=== PATIENT | male | born 1965 | race Caucasian/White ===

== ENCOUNTER 2020-02-20 16:08 | Observation (INO) | payer OTHER ==
[2020-02-20] MEDS ORDERED: ONDANSETRON 4 MG/2 ML VIAL IVP STA (16:27)
[2020-02-20] MEDS ORDERED: SODIUM CHLORIDE 0.9% 1,000 ML IV STA (16:27)
[2020-02-20] MEDS ORDERED: HYDROmorphone 1 MG/ML CARPUJECT IVP STA (16:28)
--- NOTE | 2020-02-20 16:32 | ED Physician Documentation ---
PD HPI ABD PAIN - Stated complaint Stated Complaint: LOWER ABD PX, VOMITING - Chief complaint Chief Complaint: Abd Pain - History obtained from History obtained from: Patient - History of Present Illness Timing - onset: How many hours ago (15) Timing - duration: Hours Timing - details: Abrupt onset Quality: Sharp, Throbbing, Pain Location: RLQ Radiation: Chest Associated symptoms: Nausea, Vomiting Similar symptoms before: No diagnosis, Has not had sx before - Additional information Additional information: 54-year-old male presents to the emergency department for evaluation of acute onset lower abdominal pain. Reports that approximately 15 hours ago he was awoken from sleep with a sharp bilateral lower pelvic painPain radiated to his upper abdomen and for a while he felt a pressure and throbbing in his chest.Since the pain began he has been vomiting uncontrollably. He denies that he has had any urinary symptoms, or hematuria. Patient denies pertinent past medical history. Denies hypertension, diabetes or asthma. He is not taking any prescribed medications. Denies EtOH. Positive tobacco. No previous surgical history Review of Systems Constitutional: denies: Fever, Chills Cardiac: denies: Chest pain / pressure, Palpitations Respiratory: denies: Dyspnea, Cough GI: reports: Abdominal Pain, Nausea, Vomiting. denies: Constipation, Diarrhea : denies: Dysuria, Frequency, Hesitancy, Unable to Void, Hematuria Skin: denies: Rash, Lesions Neurologic: denies: Generalized weakness PD PAST MEDICAL HISTORY - Past Surgical History Past Surgical History: No - Present Medications Home Medications: Ambulatory Orders Medication Instructions Recorded Confirmed Azithromycin [Zithromax] 250 mg PO DAILY #6 tablet 08/05/14 HYDROcod/ACETAM 5/325 [Vicodin 1 - 2 ea PO Q6H PRN #15 tablet 08/05/14 5/325] - Allergies Allergies/Adverse Reactions: Allergies Allergy/AdvReac Type Severity Reaction Status Date / Time berries Allergy Unknown Uncoded 02/20/20 16:18 - Social History Does the pt smoke?: Yes Smoking Status: Current every day smoker Does the pt drink ETOH?: Yes PD ED PE EXPANDED - General General: Alert, Well developed/nourished, In Pain - Neck Neck: Supple w/out meningeal sx, No tenderness - Cardiac Cardiac: Regular Rate, Femoral strong equal, Cap refill < 2 sec - Respiratory Respiratory: Clear to ausultation lara. No: Distress, Labored - Abdomen Abdomen: Tender to palpation, Rebound, Guarding (Percussion tenderness right lower quadrant. Positive guarding and rebound. Positive McBurney's. no tenderness RUQ) - Back Back: Normal exam. No: Vertebral tenderness, Soft tissue tenderness - Neuro Neuro: Alert and Oriented X 3. No: Confused, Disoriented Results - Vitals Vitals: Vital Signs - 24 hr 02/20/20 16:11 Temperature 36.7 C Heart Rate 80 Respiratory 16 Rate Blood Pressure 149/69 H O2 Saturation 97 Oxygen O2 Source Room air - EKG (time done) 1634 Rate: Rate (enter#) (68) Rhythm: NSR Cut Off: Normal Intervals: Normal MI QRS: Normal Ischemia: Normal ST segments Compare to prior EKG: Old EKG unavailable Computer interpretation: Agree with computer - Labs Labs: Laboratory Tests 02/20/20 02/20/20 02/20/20 16:35 16:35 16:35 WBC 20.4 H RBC 4.66 L Hgb 14.7 Hct 43.3 MCV 92.9 MCH 31.5 H MCHC 33.9 RDW 13.0 Plt Count 330 MPV 9.6 Neut # (Auto) Not Reportable Lymph # (Auto) Not Reportable [place] # (Auto) Not Reportable Eos # (Auto) Not Reportable Baso # (Auto) Not Reportable Absolute Nucleated RBC Not Reportable Total Counted 100 Band Neuts % (Manual) 1 Abnorm Lymph % (Manual) 0 Nucleated RBC % Not Reportable Neutrophils # (Manual) 18.0 H Lymphocytes # (Manual) 1.8 Monocytes # (Manual) 0.6 Eosinophils # (Manual) 0.0 Basophils # (Manual) 0.0 Differential Comment MANUAL DIFFERENTIAL Manual Slide Review Indicated WBC Morphology NORMAL APPEARANCE Platelet Estimate NORMAL (130-450,000) Platelet Morphology NORMAL APPEARANCE RBC Morph Micro Appear NORMAL APPEARANCE Sodium 133 L Potassium 4.2 Chloride 98 L Carbon Dioxide 26 Anion Gap 9.0 BUN 12 Creatinine 0.9 Estimated GFR (MDRD) 88 L Glucose 135 H Lactic Acid Calcium 8.9 Total Bilirubin 0.9 AST 15 ALT 19 Alkaline Phosphatase 130 H Troponin I High Sens 3.2 Total Protein 8.3 H Albumin 4.0 Globulin 4.3 H Albumin/Globulin Ratio 0.9 L Lipase 29 Urine Color Urine Clarity Urine pH Ur Specific [place] Urine Protein Urine Glucose (UA) Urine Ketones Urine Occult Blood Urine Nitrite Urine Bilirubin Urine Urobilinogen Ur Leukocyte Esterase Ur Microscopic Review Urine Culture Comments 02/20/20 02/20/20 16:35 16:44 WBC RBC Hgb Hct MCV MCH MCHC RDW Plt Count MPV Neut # (Auto) Lymph # (Auto) [place] # (Auto) Eos # (Auto) Baso # (Auto) Absolute Nucleated RBC Total Counted Band Neuts % (Manual) Abnorm Lymph % (Manual) Nucleated RBC % Neutrophils # (Manual) Lymphocytes # (Manual) Monocytes # (Manual) Eosinophils # (Manual) Basophils # (Manual) Differential Comment Manual Slide Review WBC Morphology Platelet Estimate Platelet Morphology RBC Morph Micro Appear Sodium Potassium Chloride Carbon Dioxide Anion Gap BUN Creatinine Estimated GFR (MDRD) Glucose Lactic Acid 1.2 Calcium Total Bilirubin AST ALT Alkaline Phosphatase Troponin I High Sens Total Protein Albumin Globulin Albumin/Globulin Ratio Lipase Urine Color YELLOW Urine Clarity CLEAR Urine pH 6.5 Ur Specific [place] 1.025 Urine Protein NEGATIVE Urine Glucose (UA) NEGATIVE Urine Ketones TRACE Urine Occult Blood NEGATIVE Urine Nitrite NEGATIVE Urine Bilirubin NEGATIVE Urine Urobilinogen 0.2 (NORMAL) Ur Leukocyte Esterase NEGATIVE Ur Microscopic Review NOT INDICATED Urine Culture Comments NOT INDICATED - Rads (name of study) CT abdomen Radiology: Final report received (Findings consistent with acute appendicitis. No abscess collection. No evidence of perforation no free fluid or free air. No bowel obstruction. Bilateral renal cysts no hydronephrosis) PD MEDICAL DECISION MAKING - ED course Complexity details: reviewed results, d/w patient, d/w family ED course: 54 year old male presents to the ED for evaluation of acute onset sudden lower abdominal pain with associated n/v. On exam he is quite tender with guarding and rebound - ddx considered but not limited to includes acute appy, cholelithiasis, SBO, incarcerated hernia, nephrolithiasis - CT confirms acute appendicitis without rupture or perforation. I have spoken with Dr. Rogers on-call surgeon who is agreed to take the patient to surgery. Patient is n.p.o. Zosyn 3.375 g has been ordered IV x1 Departure - Departure Disposition: ED Transfer to [facility] Clinical Impression: Acute appendicitis Qualifiers: Acute appendicitis type: other Qualified Code(s): K35.890 - Other acute appendicitis without perforation or gangrene; K35.89 - Other acute appendicitis
[2020-02-20 16:41] LABS: BASOPHILS % (AUTO) 0.3 %; EOSINOPHILS % (AUTO) 0.3 %; HGB - HEMOGLOBIN 14.7 g/dL (14.0-18.0); LYMPHOCYTES % (AUTO) 5.8 %; MEAN CORPUSCULAR HEMOGLOBIN 31.5 pg (27.0-31.0); MEAN CORPUSCULAR HGB CONC 33.9 g/dL (32.0-36.0); MEAN CORPUSCULAR VOLUME 92.9 fL (80.0-94.0); MEAN PLATELET VOLUME 9.6 fL (7.4-11.4); MONOCYTES % (AUTO) 5.2 %; PLT - PLATELET COUNT 330 10^3/uL (130-450); RED BLOOD COUNT 4.66 10^6/uL (4.70-6.10); WHITE BLOOD COUNT 20.4 x10^3/uL (4.8-10.8)
[2020-02-20 16:45] LABS: ABNORMAL LYMPHS % (MANUAL) 0 %
[2020-02-20 16:55] LABS: ALBUMIN/GLOBULIN RATIO 0.9 (1.0-2.2); BILIRUBIN,TOTAL 0.9 mg/dL (0.2-1.0); CALCIUM 8.9 mg/dL (8.5-10.3); CREATININE 0.9 mg/dL (0.6-1.2); TOTAL PROTEIN 8.3 g/dL (6.7-8.2)
[2020-02-20] MEDS ORDERED: IOVERSOL 320 100 ML VIAL IVP ONE ×2 (17:03→17:28)
[2020-02-20 17:06] LABS: BAND NEUTROPHILS % (MANUAL) 1 %; DIFFERENTIAL COMMENT MANUAL DIFFERENTIAL; LYMPHOCYTES # (MANUAL) 1.8 10^3/uL (1.5-3.5); LYMPHOCYTES % (MANUAL) 9 %; MONOCYTES # (MANUAL) 0.6 10^3/uL (0.0-1.0); PLATELET ESTIMATE, MANUAL NORMAL (130-450,000) (NORMAL); PLATELET MORPHOLOGY NORMAL APPEARANCE (NORMAL); RBC MORPHOLOGY (MULTIPLE) NORMAL APPEARANCE (NORMAL)
[2020-02-20 17:31] LABS: BILIRUBIN,URINE NEGATIVE (NEGATIVE); CLARITY,URINE CLEAR (CLEAR); GLUCOSE, URINE (UA) NEGATIVE (NEGATIVE); KETONES,URINE (UA) TRACE mg/dL (NEGATIVE); LEUKOCYTE ESTERASE, URINE NEGATIVE (NEGATIVE); NITRITE,URINE NEGATIVE (NEGATIVE); OCCULT BLOOD,URINE NEGATIVE (NEGATIVE); PH,URINE 6.5 PH (5.0-7.5); PROTEIN,URINE NEGATIVE (NEGATIVE); UROBILINOGEN,URINE 0.2 (NORMAL) E.U./dL (NORMAL)
--- NOTE | 2020-02-20 17:42 | CT Report ---
PROCEDURE: Abdomen/Pelvis W INDICATIONS: acute onset RLQ pain with n/v CONTRAST: IV CONTRAST: Optiray 320 ml: 100 PO CONTRAST: *NO PO CONTRAST TECHNIQUE: After the administration of oral and intravenous contrast, 5 mm thick sections acquired from the diap hragms to the symphysis. 5 mm thick coronal and sagittal reformats were acquired. For radiation dos e reduction, the following was used: automated exposure control, adjustment of mA and/or kV accordin g to patient size. COMPARISON: None. FINDINGS: Image quality: Excellent. ABDOMEN: Lung bases: Bilateral dependent atelectasis is seen. Heart size is normal. Solid organs: Liver and spleen are normal in size and enhancement. Gallbladder is within normal romero its Biliary system is non dilated. Pancreas enhances normally. No adrenal nodules. Kidneys demons trate normal size and enhancement, without hydronephrosis. Bilateral renal cysts are seen measures u p to 4.3 x 3.5 cm in size in mid pole of right kidney. Peritoneum and bowel: There is no bowel obstruction. Appendix is enlarged and measures 1.5 cm in diam eter with appendiceal wall thickening and extensive periappendiceal fat stranding. There are calcific ations seen in neck of appendix measures up to 1.3 cm in size and are consistent with appendicoliths. No abscess collection. No free fluid or free air. No other area of abnormal bowel wall thickening. Nodes and vessels: No retroperitoneal or mesenteric adenopathy by size criteria. Aorta and inferior vena cava are normal in size. Miscellaneous: No ventral hernias. PELVIS: Genitourinary: Bladder wall thickness is normal. Miscellaneous: No inguinal hernias or adenopathy. Bones: No suspicious bony lesions. No vertebral body compression fractures. IMPRESSION: 1. Findings consistent with acute appendicitis. No abscess collection. No evidence of perforation. No free fluid or free air. 2. No bowel obstruction. 3. Bilateral renal cysts. No hydronephrosis. Reviewed by: Misael Oakley MD on 02/20/2020 5:41 PM PDT Approved by: Misael Oakley MD on 02/20/2020 5:41 PM PDT Station ID: [id number]
[2020-02-20] MEDS ORDERED: cefTRIAXone 1 GM in SODIUM CHLORIDE 0.9% MINIBAG 100 ML IV STA (18:06)
[2020-02-20] MEDS ORDERED: PIPERACILLIN/TAZOBACTAM 3.375 GM in SODIUM CHLORIDE 0.9% MINIBAG 100 ML IV STA (18:22)
[2020-02-20] MEDS ORDERED: metroNIDAZOLE 500 MG/100 ML 500 MG/100 ML BAG IV SCH (19:00)
--- NOTE | 2020-02-20 19:01 | ANESTHESIA ---
Pre-Anesthesia VS, & Labs - Diagnosis acute apendicitis - Procedure Lap Appendectomy Vital Signs: Temp Pulse Resp BP Pulse Ox 36.7 C 72 17 135/70 H 98 02/20/20 16:11 02/20/20 18:18 02/20/20 18:18 02/20/20 18:18 02/20/20 18:18 Height 6 ft Weight (kg) 97.522 kg Body Mass Index 29.1 - NPO >8 hours, Other (Had water at 1430 and vomitted at 1530) - Lab Results Current Lab Results: Laboratory Tests 02/20/20 16:35: Lactic Acid 1.2 02/20/20 16:35: Troponin I High Sens 3.2 02/20/20 16:35: Sodium 133 L, Potassium 4.2, Chloride 98 L, Carbon Dioxide 26, Anion Gap 9.0, BUN 12, Creatinine 0.9, Estimated GFR (MDRD) 88 L, Glucose 135 H, Calcium 8.9, Total Bilirubin 0.9, AST 15, ALT 19, Alkaline Phosphatase 130 H, Total Protein 8.3 H, Albumin 4.0, Globulin 4.3 H, Albumin/Globulin Ratio 0.9 L, Lipase 29 02/20/20 16:35: WBC 20.4 H, RBC 4.66 L, Hgb 14.7, Hct 43.3, MCV 92.9, MCH 31.5 H , MCHC 33.9, RDW 13.0, Plt Count 330, MPV 9.6, Neut # (Auto) Not Reportable, Lymph # (Auto) Not Reportable, [place] # (Auto) Not Reportable, Eos # (Auto) Not Reportable, Baso # (Auto) Not Reportable, Absolute Nucleated RBC Not Reportable, Total Counted 100, Band Neuts % (Manual) 1, Abnorm Lymph % (Manual) 0, Nucleated RBC % Not Reportable, Neutrophils # (Manual) 18.0 H, Lymphocytes # (Manual) 1.8, Monocytes # (Manual) 0.6, Eosinophils # (Manual) 0.0, Basophils # (Manual) 0.0, Differential Comment MANUAL DIFFERENTIAL, Manual Slide Review Indicated, WBC Mo rphology NORMAL APPEARANCE, Platelet Estimate NORMAL (130-450,000), Platelet Morphology NORMAL APPEARANCE, RBC Morph Micro Appear NORMAL APPEARANCE Fish Bones: 02/20/20 16:35 02/20/20 16:35 Home Medications and Allergies Allergies/Adverse Reactions: Allergies Allergy/AdvReac Type Severity Reaction Status Date / Time berries Allergy Unknown Uncoded 02/20/20 16:18 Anes History & Medical History - Anesthetic History Anesthesia Complications: reports: No previous complications (no previous anesthetic experience.) Family history of Anesthesia Complications: Denies Family history of Malignant Hyperthermia: Denies - Medical History Cardiovascular: reports: None Pulmonary: reports: None (1ppd x35 years.) Gastrointestinal: reports: None Urinary: reports: None Neuro: reports: None Musculoskeletal: reports: None Endocrine/Autoimmune: reports: None Blood Disorders: reports: None Skin: reports: None Smoking Status: Current every day smoker Psychosocial: reports: Alcohol (one drink a week) Exam General: Alert, Oriented x3, Cooperative, No acute distress Dental: WNL Mouth Openin Fingerbreadth Neck Mobility: Normal Mallampati classification: II Thyromental Distance: 4-6 cm Respiratory: Decreased breath sounds, Crackles (crackles in the bases with overall dominished breath sounds) Cardiovascular: Regular rate, Normal S1, Normal S2, No murmurs Abdomen: Normal bowel sounds, Soft, No tenderness, No hepatospenomegaly, No masses Extremities: No clubbing, No cyanosis, No edema, Normal pulses, No tenderness/swelling Neurological: Normal gait, Normal speech, Strength at 5/5 X4 ext, Normal tone, Sensation intact, Cranial nerves 3-12 NL, Reflexes 2+ Mental/Cognitive Status: Alert/Oriented X3, Normal for patient Cognitive Status: Within normal limits Plan Anesthesia Type: General, Transverse Abdominis Plane (TAP) Block Regional Block: Per Surgeon's request for Post Op pain control Consent for Procedure(s) Verified and Reviewed: Yes Code Status: Attempt Resuscitation ASA classification: 2-Mild systemic disease Is this case an emergency?: Yes
[2020-02-20] MEDS ORDERED: BUPIVACAINE 0.5% PF 30 ML VIAL ONE (19:11)
[2020-02-20] MEDS ORDERED: LIDOCAINE 1%-EPI 1:100000 20 ML MDV ONE ×2 (19:11→19:12)
[2020-02-20] MEDS ORDERED: ROPIVACAINE 0.5% PF 20 ML AMPULE ONE (19:21)
--- NOTE | 2020-02-20 19:54 | SURGERY HX AND PHYSICAL(T) ---
Surgical History & Physical - Chief Complaint/HPI Chief Complaint: Abdominal pain History of Present Illness: 54-year-old male with 1 day history of nausea vomiting, abdominal pain periumbilical migrating to right lower quadrant. No past surgical history. No prior colonoscopy. No history of heart attack and/or stroke, however patient is an active smoker. - PMH/PSH/Social Hx Neurological History: None Cardiovascular: None Respiratory: None (1ppd x35 years.) Skin: None Endocrine/Autoimmune: None Gastrointestinal: None Urinary: None Musculoskeletal: None Blood Disorders: None Smoking Status: Current every day smoker Does the pt drink ETOH?: Yes Frequency: Occasional - Family Hx Family Hx: Other (Denies family history of colorectal cancer, inflammatory bowel disease, Crohn's disease, ulcerative colitis.) - Home Meds and Allergies Allergies/Adverse Reactions: Allergies Allergy/AdvReac Type Severity Reaction Status Date / Time berries Allergy Unknown Uncoded 02/20/20 16:18 - Review of Systems Constitutional: Fever, Poor appetite Gastrointestinal: Nausea, Vomiting, Abdominal pain (Remainder of review of systems unremarkable except as noted above.) - Vital Signs Heart Rate: 72 Blood Pressure: 135/70 Temperature: 36.7 C Respiratory Rate: 17 O2 Saturation: 98 Weight (kg): 97.522 kg Height: 1.83 m - Physical Exam General Appearance: positive: Moderate distress Eyes Bilatera: positive: Normal inspection, PERRL, EOMI ENT: positive: ENT inspection nml Neck: positive: Nml inspection Respiratory: positive: Chest non-tender, No respiratory distress, Breath sounds nml Cardiovascular: positive: Regular rate & rhythm Abdomen: positive: Tenderness, Guarding, Rebound, Other (Soft, nondistended, positive tenderness palpation right lower quadrant with localized rebound and guarding. No diffuse peritoneal signs). negative: Non-tender Extremities: positive: Non-tender, Full ROM - Patient Review Patient Review: Problems were reviewed with the patient during this visit. Med ications were reviewed with the patient during this visit. Allergies were reviewed this patient during this visit. Pertinent Tests Reviewed: All pertitent test for this patient were reviewed. - Assessment & Plan Assessment and Plan: 54-year-old male presenting with acute appendicitis with multiple comorbid states including smoking/tobacco use and abuse. Leukocytosis to 20, CT consistent with appendicitis. Plan going forward is as follows: 1. Bowel rest, IV fluid resuscitation, IV antibiotics. 2. Preoperative chest x-ray, preoperative EKG, labs evaluated. 3. Planned diagnostic laparoscopy, laparoscopic appendectomy, other indicated procedures. Patient counseled of the risk associated with operative intervention including but not limited to conversion to open procedure, injury to local structures, and anesthesia risks of heart attack, stroke, . 4. Postoperative care under observation status with continued IV antibiotics.
[2020-02-20] MEDS ORDERED: SODIUM CHLORIDE FLUSH 0.9% 10 ML SYRINGE IVP PRN (21:58)
[2020-02-20] MEDS ORDERED: LACTATED RINGERS 1,000 ML IV ONE ×3 (22:00→22:15)
[2020-02-20] MEDS ORDERED: PIPERACILLIN/TAZOBACTAM 3.375 GM in SODIUM CHLORIDE 0.9% MINIBAG 100 ML IV SCH (22:00)
[2020-02-20] MEDS ORDERED: HEPARIN 5,000 UNIT/ML VIAL SUBQ SCH (22:00)
[2020-02-20] MEDS ORDERED: ACETAMINOPHEN 1,000 MG/100 ML 100 ML IV SCH (22:00)
[2020-02-20] MEDS ORDERED: ONDANSETRON 4 MG/2 ML VIAL IVP PRN (22:04)
[2020-02-20] MEDS ORDERED: oxyCODONE 5 MG TABLET PO PRN (22:04)
[2020-02-20] MEDS ORDERED: HYDROmorphone 2 MG/ML VIAL IVP PRN (22:06)
[2020-02-20] MEDS ORDERED: ALBUTEROL NEB 2.5 MG/3 ML INH PRN (22:09)
--- NOTE | 2020-02-20 22:15 | OPERATIVE REPORT ---
Operative Report - General Procedure Date: 02/20/20 Planned Procedure: 1. Diagnostic laparoscopy 2. Laparoscopic appendectomy 3. Extensive lysis of adhesions 4. Drainage of abscess 5. Abdominal washout 6. Open umbilical hernia repair 7. Tap block per anesthesia 8. Drain placement Pre-Op Diagnosis: Appendicitis, sepsis, obesity, tobacco abuse Procedure Performed: 1. Diagnostic laparoscopy 2. Laparoscopic appendectomy 3. Extensive lysis of adhesions 4. Drainage of abscess 5. Abdominal washout 6. Open umbilical hernia repair 7. Tap block per anesthesia 8. Drain placement Post Op Diagnosis: Same, suppurative appe, contained perfor, dense RLQ adhesions, umb hernia - Procedure Note Primary Surgeon: Booker Anesthesia Provider: Ashley Anesthesia Technique: General ET tube, Regional block Pathology: Appendix and fold of Treves, portion of the cecum Drain/Tube Type: Morgan drain, Other (Leon catheter) Indications: 1. Sepsis, SIRS with presumptive abdominal source 2. Abdominal pain 3. Appendicitis by clinical history and imaging Findings: 1. Suppurative appendicitis 2. Dense right lower quadrant adhesions 3. Likely contained perforation with phlegmonous change and early abscess 4. No feculent spillage 5. Fold of Treves resected as well secondary to secondary inflammatory changes 6. Umbilical hernia noted on access performed for primary umbilical hernia re pair Complications: None
[2020-02-21] MEDS: D5NS W/20 MEQ KCL 1,000 ML IV SCH ×3 (00:22→17:57)
[2020-02-21] MEDS: KETOROLAC 30 MG/ML VIAL IVP SCH ×4 (00:24→17:57)
[2020-02-21] MEDS: METOCLOPRAMIDE 10 MG/2 ML VIAL IVP SCH ×4 (00:46→17:58)
[2020-02-21] MEDS: methocarbamoL 500 MG TABLET PO SCH ×5 (00:46→17:58)
[2020-02-21] MEDS: IPRATROPIUM 0.2 MG/ML NEB INH SCH ×2 (00:54→07:48)
[2020-02-21] MEDS: SODIUM CHLORIDE FLUSH 0.9% 10 ML SYRINGE IVP SCH ×3 (01:02→17:06)
[2020-02-21] MEDS: PIPERACILLIN/TAZOBACTAM 3.375 GM in SODIUM CHLORIDE 0.9% MINIBAG 100 ML IV SCH ×3 (03:57→20:58)
[2020-02-21 05:29] LABS: BASOPHILS % (AUTO) 0.1 %; EOSINOPHILS % (AUTO) 0.1 %; HGB - HEMOGLOBIN 12.5 g/dL (14.0-18.0); LYMPHOCYTES % (AUTO) 7.4 %; MEAN CORPUSCULAR HEMOGLOBIN 30.3 pg (27.0-31.0); MEAN CORPUSCULAR HGB CONC 31.6 g/dL (32.0-36.0); MEAN CORPUSCULAR VOLUME 95.9 fL (80.0-94.0); MEAN PLATELET VOLUME 9.7 fL (7.4-11.4); MONOCYTES # (AUTO) 0.4 10^3/uL (0.0-1.0); MONOCYTES % (AUTO) 3.2 %; NEUTROPHILS # (AUTO) 11.8 10^3/uL (1.5-6.6); NEUTROPHILS % (AUTO) 88.8 %; PLT - PLATELET COUNT 280 10^3/uL (130-450); RED BLOOD COUNT 4.12 10^6/uL (4.70-6.10); RED CELL DISTRIBUTION WIDTH 13.2 % (12.0-15.0); WHITE BLOOD COUNT 13.3 x10^3/uL (4.8-10.8)
[2020-02-21 05:41] LABS: ALBUMIN 3.3 g/dL (3.2-5.5); ALBUMIN/GLOBULIN RATIO 0.9 (1.0-2.2); BILIRUBIN,TOTAL 0.8 mg/dL (0.2-1.0); CALCIUM 8.2 mg/dL (8.5-10.3); TOTAL PROTEIN 6.9 g/dL (6.7-8.2)
[2020-02-21] MEDS: ACETAMINOPHEN 1,000 MG/100 ML 100 ML IV SCH ×3 (06:19→17:07)
[2020-02-21] MEDS ORDERED: IPRATROPIUM 0.2 MG/ML NEB INH PRN (07:52)
[2020-02-21] MEDS: DOCUSATE SODIUM 100 MG CAPSULE PO SCH ×2 (08:24→20:58)
[2020-02-21] MEDS: polyethylene glycoL 3350 17 GM PACKET PO SCH ×2 (08:24→21:07)
[2020-02-21] MEDS: HEPARIN 5,000 UNIT/ML VIAL SUBQ SCH ×2 (08:25→17:03)
--- NOTE | 2020-02-21 09:51 | PHARMACY PROGRESS NOTE ---
- Best Possible Medication History Admit Date and Time: 02/20/20 8795 Processed by: Pharmacy Medication History completed: Yes Patient Interview: Completed Secondary Source(s): Pharmacy records, Insurance records (PATIENT STATES HE DOES NOT TAKE HOME MEDICATIONS ) As the person ultimately responsible for medication therapy, providers are able to order a medication from an existing home medication list in [facility] via the "Reconcile Routine" prior to Confirmation of that medication by manager technical support. Such practice is discouraged except when the physician, in their clinical judgment, deems that a medical need exists for a medication without regard to previous use.
--- NOTE | 2020-02-21 18:03 | PROVIDER PROGRESS NOTE ---
Subjective - General Admit Date: 02/20/20 Procedure Date: 02/20/20 Post Op Days: 1 Procedure Performed: Dx lap, lap appe & partial cecectomy, abd washout, drain, UHR - Review of Systems Wound/Incisions: positive: Healing well, Dressing dry and intact, No drainage Drain Type: Morgan with serosanguineous Drain Output Description: Serosanguineous General: positive: No symptoms, Other (He is much improved) HEENT: positive: No symptoms Pulmonary: positive: No symptoms Cardiovascular: positive: No symptoms Gastrointestinal: positive: Flatus, Other (Overall improved). negative: Nausea, Vomiting, Abdominal pain Genitourinary: positive: Other (Voiding on own) Musculoskeletal: positive: No symptoms Skin: positive: No symptoms All Other Systems: positive: Reviewed and negative Objective - Patient Data Vital Signs: Vital Signs x48h Temp Pulse Resp BP Pulse Ox 02/21/20 16:20 36.9 C 55 L 17 126/66 98 02/21/20 11:58 37.0 C 59 L 17 119/67 97 Weight: Weight 02/19/20 02/20/20 02/21/20 23:59 23:59 23:59 Weight (kg) 97.522 kg 97.5 kg Intake & Output: Intake and Output Totals x24h 02/19/20 02/20/20 02/21/20 23:59 23:59 23:59 Intake Total 1100 4003.750 Output Total 40 1310 Balance 1060 2693.750 - Lab Results Lab Results: 02/21/20 05:15 02/21/20 05:15 Other Lab Results: Lab Results x24hrs 02/21/20 02/21/20 Range/Units 05:15 05:15 WBC 13.3 H (4.8-10.8) x10^3/uL RBC 4.12 L (4.70-6.10) 10^6/uL Hgb 12.5 L (14.0-18.0) g/dL Hct 39.5 L (42.0-52.0) % MCV 95.9 H (80.0-94.0) fL MCH 30.3 (27.0-31.0) pg MCHC 31.6 L (32.0-36.0) g/dL RDW 13.2 (12.0-15.0) % Plt Count 280 (130-450) 10^3/uL MPV 9.7 (7.4-11.4) fL Neut # (Auto) 11.8 H (1.5-6.6) 10^3/uL Lymph # (Auto) 1.0 L (1.5-3.5) 10^3/uL [place] # (Auto) 0.4 (0.0-1.0) 10^3/uL Eos # (Auto) 0.0 (0.0-0.7) 10^3/uL Baso # (Auto) 0.0 (0.0-0.1) 10^3/uL Absolute Nucleated RBC 0.00 x10^3/uL Nucleated RBC % 0.0 /100WBC Sodium 135 (135-145) mmol/L Potassium 4.4 (3.5-5.0) mmol/L Chloride 103 (101-111) mmol/L Carbon Dioxide 25 (21-32) mmol/L Anion Gap 7.0 (6-13) BUN 12 (6-20) mg/dL Creatinine 1.0 (0.6-1.2) mg/dL Estimated GFR (MDRD) 78 L (>89) Glucose 170 H (70-100) mg/dL Calcium 8.2 L (8.5-10.3) mg/dL Total Bilirubin 0.8 (0.2-1.0) mg/dL AST 13 (10-42) IU/L ALT 15 (10-60) IU/L Alkaline Phosphatase 103 (42-121) IU/L Total Protein 6.9 (6.7-8.2) g/dL Albumin 3.3 (3.2-5.5) g/dL Globulin 3.6 (2.1-4.2) g/dL Albumin/Globulin Ratio 0.9 L (1.0-2.2) - Current Medications Current Medications: Current Medications Generic Name Dose Route Start Last Admin Trade Name Freq PRN Reason Stop Dose Admin Docusate Sodium 100 mg 02/21/20 09:00 02/21/20 08:24 Colace 100mg Capsule PO 100 mg BID JOSE Administration Heparin Sodium (Porcine) 5,000 unit 02/21/20 09:00 02/21/20 17:03 SUBQ 5,000 unit Q8H JOSE Administration Potassium Chloride/Dextrose/Sod Cl 1,000 mls @ 125 mls/hr 02/20/20 23:00 02/21/20 17:57 IV 125 mls/hr .Q8H JOSE Administration Acetaminophen 100 mls @ 400 mls/hr 02/21/20 06:00 02/21/20 17:22 Ofirmev IV Infused Q6H JOSE Infusion Piperacillin Sod/Tazobactam 100 mls @ 25 mls/hr 02/21/20 04:00 02/21/20 16:32 Sod 3.375 gm/ Sodium Chloride IV Infused Q8H JOSE Infusion Ketorolac Tromethamine 15 mg 02/21/20 00:00 02/21/20 17:57 Toradol Inj (30mg) IVP 02/26/20 00:00 15 mg Q6HR JOSE Administration Methocarbamol 500 mg 02/21/20 00:00 02/21/20 17:58 Robaxin PO 500 mg Q6HR JOSE Administration Metoclopramide HCl 10 mg 02/21/20 00:00 02/21/20 17:58 Reglan Inj IVP 10 mg Q6HR JOSE Administration Polyethylene Glycol 17 gm 02/21/20 09:00 02/21/20 08:24 Miralax PO 17 gm BID JOSE Administration Sodium Chloride 10 ml 02/21/20 01:00 02/21/20 17:06 Normal Saline Flush 0.9% IVP 10 ml 0100,0900,1700 JOSE Administration - Physical Exam Wound/Incisions: positive: Healing well, Dressing dry and intact, No drainage General Appearance: positive: No acute distress Eyes Bilateral: positive: Normal inspection, PERRL, EOMI ENT: positive: ENT inspection nml Neck: positive: Nml inspection Respiratory: positive: Chest non-tender Cardiovascular: positive: Regular rate & rhythm Abdomen: positive: Non-tender, No distention, Tenderness, Other (Abdomen soft, nondistended, appropriately tender to palpation, no rebound no guarding. Wounds clean dry and intact. Drain in place SEVEN/Morgan with self suction intact serosanguineous.). negative: Guarding, Rebound Skin: positive: Color nml Neurologic/Psychiatric: positive: Oriented x3, Mood/affect nml ABX Reporting Has patient been on IV antibiotics over the past 48 hours?: Yes Impression/Plan - Problem List Problem List: 54 year old male with PMH significant for tobacco abuse and obesity. Post operative day #1 from the following surgical procedure -diagnostic laparoscopy, laparoscopic appendectomy with partial cecectomy, open umbilical hernia repair, abdominal washout, drain placement, among others. Doing well postoperatively with positive bowel function. Plan going forward is as follows: 1. Discontinue IV fluids, advance diet as tolerated, GI prophylaxis, will continue bowel regimen. 2. Opiate sparing analgesia to include Robaxin, Toradol, Lyrica, acetaminophen, will defer Celebrex given currently receiving DVT prophylaxis with heparin subcu together with Toradol for analgesia. 3. Continue antibiotics in the setting of active suppurative appendicitis, will transition to oral to complete a 10-day course. 4. Replete electrolytes which we will follow daily.. 5. PT/OT out of bed with ambulation. 6. Discharge within the next 12 to 24 hours
--- NOTE | 2020-02-21 18:14 | Discharge Plan ---
Discharge Plan Problem Reviewed?: Yes Disposition: Home Health Service Condition: Stable Prescriptions: oxyCODONE [Roxicodone] 5 mg PO Q4HR PRN 6 Days #24 tablet PRN Reason: Pain methocarbamoL [Robaxin] 500 mg PO Q6HR PRN #30 tablet PRN Reason: Spasms Ciprofloxacin HCl [Cipro] 500 mg PO BID 10 Days #20 tablet metroNIDAZOLE [Flagyl] 500 mg PO TID 10 Days #30 tablet Diet: Soft Activity Restrictions: No heavy lifting pushing Shower Restrictions: No Driving Restrictions: Yes (No driving while taking narcotics) Instruction Topics: Appendectomy After, Hernia Surg Repair, Quit Smoking Plan, Quit Smoking Get Support Health Concerns: DISCHARGE INSTRUCTIONS TEMPLATE: No heavy lifting, pushing, or pulling. Stairs are allowed, no strenuous/exertional activities. 5-10lbs weight carrying limit (i.e. gallon of milk) If provided, abdominal binder while out of bed and while ambulating. Call or proceed to clinic/ER for fevers, severe pain, nausea, vomiting, inability to pass flatus/stool, bleeding, wound redness/discharge, weakness, excessively loose stool/diarrhea, or for any other reasonably worrisome symptom or concern. Soft diet, no raw vegetables, avoid high fiber foods. Colace 100mg by mouth twice to three times daily while taking narcotic pain medication. If no bowel movement in 24-48hr, may take 17g Miralax in 8oz water twice daily until bowel movement. May shower, no submersive bathing. Follow up in clinic in 2-4 weeks for wound check and staple removal. No driving while taking narcotic pain medications. Follow up with primary care provider and/or medical subspecialist following discharge as well. Smoking cessation encouraged. Leave drain in place measure output and proceed to clinic next week with would be general surgery for removal. Continue with oral antibiotics as instructed. Plan of Treatment: Smoking cessation encouraged. Leave drain in place measure output and proceed to clinic next week with would be general surgery for removal. Continue with oral antibiotics as instructed. No Smoking: If you smoke, Please STOP! Call for help. Follow-up with: Jovani Celeste MD [Provider Admit Priv/Credential] - 1-2 Days (For drain removal)
[2020-02-22] MEDS: HEPARIN 5,000 UNIT/ML VIAL SUBQ SCH ×2 (00:50→08:11)
[2020-02-22] MEDS: KETOROLAC 30 MG/ML VIAL IVP SCH ×3 (00:51→12:22)
[2020-02-22] MEDS: methocarbamoL 500 MG TABLET PO SCH ×3 (00:53→12:22)
[2020-02-22] MEDS: METOCLOPRAMIDE 10 MG/2 ML VIAL IVP SCH ×3 (00:54→12:23)
[2020-02-22] MEDS: ACETAMINOPHEN 1,000 MG/100 ML 100 ML IV SCH ×3 (00:56→12:22)
[2020-02-22] MEDS: SODIUM CHLORIDE FLUSH 0.9% 10 ML SYRINGE IVP SCH ×2 (01:04→08:15)
[2020-02-22] MEDS: PIPERACILLIN/TAZOBACTAM 3.375 GM in SODIUM CHLORIDE 0.9% MINIBAG 100 ML IV SCH ×2 (04:29→12:23)
[2020-02-22 05:20] LABS: BASOPHILS # (AUTO) 0.1 10^3/uL (0.0-0.1); BASOPHILS % (AUTO) 0.8 %; EOSINOPHILS % (AUTO) 0.4 %; HGB - HEMOGLOBIN 11.6 g/dL (14.0-18.0); LYMPHOCYTES # (AUTO) 3.5 10^3/uL (1.5-3.5); LYMPHOCYTES % (AUTO) 34.3 %; MEAN CORPUSCULAR HEMOGLOBIN 31.5 pg (27.0-31.0); MEAN CORPUSCULAR VOLUME 95.7 fL (80.0-94.0); MEAN PLATELET VOLUME 9.7 fL (7.4-11.4); MONOCYTES # (AUTO) 0.7 10^3/uL (0.0-1.0); MONOCYTES % (AUTO) 6.8 %; NEUTROPHILS # (AUTO) 5.9 10^3/uL (1.5-6.6); NEUTROPHILS % (AUTO) 57.3 %; PLT - PLATELET COUNT 251 10^3/uL (130-450); RED BLOOD COUNT 3.68 10^6/uL (4.70-6.10); RED CELL DISTRIBUTION WIDTH 13.3 % (12.0-15.0); WHITE BLOOD COUNT 10.3 x10^3/uL (4.8-10.8)
[2020-02-22 05:31] LABS: ALBUMIN 3.1 g/dL (3.2-5.5); BILIRUBIN,TOTAL 0.4 mg/dL (0.2-1.0); TOTAL PROTEIN 6.1 g/dL (6.7-8.2)
[2020-02-22] MEDS ORDERED: HYDROmorphone 1 MG/ML CARPUJECT IVP PRN (09:14)
[2020-02-22] MEDS: DOCUSATE SODIUM 100 MG CAPSULE PO SCH (10:00)
[2020-02-22] MEDS: polyethylene glycoL 3350 17 GM PACKET PO SCH (10:00)
[2020-02-22 12:22] VITALS: BP 149/73
--- NOTE | 2020-02-22 20:01 | DISCHARGE SUMMARY ---
"Discharge Summary Admit Date: 02/20/20 Discharge Date: 02/22/20 Discharging Provider: Booker Condition at Discharge: Stable Discharge Disposition: 01 Home, Self Care - DIAGNOSES Admission Diagnoses: 1. Abdominal sepsis 2. Acute appendicitis 3. Contained perforation with early suppuration and abscess 4. Obesity 5. TOBACCO ABUSE Discharge Diagnoses with Status of Each Condition: 1. Abdominal sepsis - RESOLVED 2. Acute appendicitis - RESOLVED 3. Contained perforation with early suppuration and abscess - RESOLVED, DRAIN PLACED 4. Obesity - ACTIVE 5. Status post laparoscopic appendectomy with abscess decompression and drain placement - RESOLVED 6. Status post open umbilical hernia repair - RESOLVED 7. TOBACCO ABUSE - ACTIVE - HPI History of Present Illness: 54-year-old male with 1 day history of nausea vomiting, abdominal pain periumbilical migrating to right lower quadrant. No past surgical history. No prior colonoscopy. No history of heart attack and/or stroke, however patient is an active smoker. - CONSULTS | PROCEDURES Consultations: ANESTHESIA Procedures: 1. Diagnostic laparoscopy 2. Laparoscopic appendectomy 3. Extensive lysis of adhesions 4. Drainage of abscess 5. Abdominal washout 6. Open umbilical hernia repair 7. Tap block per anesthesia 8. Drain placement - HOSPITAL COURSE Hospital Course: Patient admitted with acute appendicitis. Patient underwent operative in tervention as listed in the electronic medical record. Tolerated procedure well for which there was no complication. Patient placed for drain in setting of perforated suppurative appendicitis. Postoperatively the patient was managed for postoperative analgesia and resumption of bowel function. Patient had successfully passed trial of void. Tolerated oral intake without any complication. Denied nausea denied vomiting. Was advanced for diet without any complication. Was counseled that given evidence of [suppuration in the setting of the patient's acute appendicitis] would recommend continued antibiotics for 2 weeks; patient was maintained on antibiotics during the hospital stay. Discharge instructions given. Analgesia with NARCOTIC provided at time of discharge. Patient plan for follow-up and will be notified of pathology once returned. - ALLERGIES Allergies/Adverse Reactions: Allergies Allergy/AdvReac Type Severity Reaction Status Date / Time berries Allergy Unknown Uncoded 02/20/20 16:18 - MEDICATIONS Home Medications: Ambulatory Orders Medication Instructions Recorded Confirmed Ciprofloxacin HCl [Cipro] 500 mg PO BID 10 Days #20 tablet 02/21/20 methocarbamoL [Robaxin] 500 mg PO Q6HR PRN #30 tablet 02/21/20 metroNIDAZOLE [Flagyl] 500 mg PO TID 10 Days #30 tablet 02/21/20 oxyCODONE [Roxicodone] 5 mg PO Q4HR PRN 6 Days #24 tablet 02/21/20 polyethylene glycoL 3350 [Miralax] 17 gm PO BID packet 02/21/20 - PHYSICAL EXAM AT DISCHARGE General Appearance: positive: No acute distress Eyes Bilateral: positive: Normal inspection, PERRL, EOMI ENT: positive: ENT inspection nml Neck: positive: Nml inspection Respiratory: positive: Chest non-tender, No respiratory distress, Breath sounds nml. negative: Wheezes, Rales, Rhonchi Cardiovascular: positive: Regular rate & rhythm Abdomen: positive: Nml bowel sounds, Tenderness, Other (Soft, appropriately tender to palpation, no rebound no guarding, normoactive bowel sounds. Wounds clean dry and intact. Drain serosanguineous.). negative: No distention, Guarding, Rebound Back: positive: Nml inspection Skin: positive: Color nml Extremities: positive: Full ROM, Nml appearance Neurologic/Psychiatric: positive: Oriented x3, CN's nml (2-12) - LABS Result Diagrams: 02/22/20 05:06 02/22/20 05:06 - SEPSIS Confirmed Source and Organism (if known) of Sepsis: Appendectomy with contained perforation. - FOLLOW UP Follow Up: DISCHARGE INSTRUCTIONS TEMPLATE: No heavy lifting, pushing, or pulling. Stairs are allowed, no strenuous/exertional activities. 5-10lbs weight carrying limit (i.e. gallon of milk) If provided, abdominal binder while out of bed and while ambulating. Call or proceed to clinic/ER for fevers, severe pain, nausea, vomiting, inability to pass flatus/stool, bleeding, wound redness/discharge, weakness, excessively loose stool/diarrhea, or for any other reasonably worrisome symptom or concern. Soft diet, no raw vegetables, avoid high fiber foods. Colace 100mg by mouth twice to three times daily while taking narcotic pain medication. If no bowel movement in 24-48hr, may take 17g Miralax in 8oz water twice daily until bowel movement. May shower, no submersive bathing. Follow up in clinic in 2-4 weeks for wound check and staple removal. No driving while taking narcotic pain medications. Follow up with primary care provider and/or medical subspecialist following discharge as well. Complete antibiotics as per instructions. Drain care as instructed with outpatient follow-up."
== END 2020-02-22 12:15 | disposition home or self-care (01) ==
LOC: ED 16:08 → SDS 19:00 → MS2 21:58
PROVIDERS: ADMIT Surgery; ATTEND Surgery
PROC: 0DTJ4ZZ Resection of Appendix, Percutaneous Endoscopic Approach (ICD-10-PCS; principal; 2020-02-20 19:15)
DX: A41.9 Sepsis, unspecified organism (principal); K35.32 Acute appendicitis with perforation, localized peritonitis, and gangrene, without abscess; K42.9 Umbilical hernia without obstruction or gangrene; K66.0 Peritoneal adhesions (postprocedural) (postinfection); F17.200 Nicotine dependence, unspecified, uncomplicated; E66.9 Obesity, unspecified; Z68.29 Body mass index [BMI] 29.0-29.9, adult
CPT/HCPCS: 36415; 44970; 74177; 80053; 81003; 83605; 83690; 84484; 85025; 88304; 93005; 96361; 96374; 99284; 99285; A9270; G0378; J0131; J1170; J2765; J7120; Q9967; 81001; 87086

== ENCOUNTER 2022-02-26 11:03 | Emergency (ER) | payer OTHER ==
[2022-02-26 11:15] VITALS: BP 136/67
--- NOTE | 2022-02-26 11:41 | XRAY Report ---
PROCEDURE: Hand 3 View RT INDICATIONS: hand inj TECHNIQUE: 3 views of the hand(s) acquired. COMPARISON: None FINDINGS: Bones: No acute fractures or dislocations. No suspicious bony lesions. Polyarticular degenerative changes of the interphalangeal joints involving the second through fifth fingers. Minimal degenerativ e changes of the metacarpophalangeal joint of the third finger. Mild degenerative changes of the righ t thumb metacarpophalangeal joint. Soft tissues: No suspicious soft tissue calcifications. IMPRESSION: Right hand without acute fracture or malalignment. Mild polyarticular degenerative changes of the rig ht hand predominantly involving the interphalangeal joints. If there is continued clinical concern for pathology or occult fracture, consider follow-up imaging w ith repeat radiographs in 10-14 days and possible advanced imaging (CT, MRI, bone scan) if symptoms p ersist. Reviewed by: Elton Viveros MD on 02/26/2022 11:39 AM PDT Approved by: Elton Viveros MD on 02/26/2022 11:39 AM PDT Station ID: [id number]
--- NOTE | 2022-02-26 12:37 | ED Physician Documentation ---
PD HPI UPPER EXT INJURY - Stated complaint Stated Complaint: R HAND INJURY - Chief complaint Chief Complaint: Trauma Ext - History obtained from History obtained from: Patient - History of Present Illness Location: Right, Hand, Finger (index and middle) Type of injury: Blunt / blow (he had approx 8 lb package fall onto right hand while he was holding something, causing some hyperextension of fingers and direct blow. Pain and swelling of the fingers that has persisted into today.) Where injury occurred: Work Timing - onset: How many days ago (2) Timing - duration: Days (2) Timing - details: Abrupt onset, Still present Associated symptoms: Swelling. No: Weakness, Numbness Contributing factors: No: Anticoagulated, Prior ortho surgery Similar symptoms before: Has not had sx before Review of Systems Skin: denies: Abrasion (s), Laceration (s) Musculoskeletal: reports: Extremity pain Neurologic: denies: Focal weakness, Numbness PD PAST MEDICAL HISTORY - Past Medical History Cardiovascular: None Respiratory: None Neuro: None Endocrine/Autoimmune: None GI: None : None Musculoskeletal: None Derm: None - Past Surgical History Past Surgical History: No - Present Medications Home Medications: Ambulatory Orders Medication Instructions Recorded Confirmed Ciprofloxacin HCl [Cipro] 500 mg PO BID 10 Days #20 tablet 02/21/20 methocarbamoL [Robaxin] 500 mg PO Q6HR PRN #30 tablet 02/21/20 metroNIDAZOLE [Flagyl] 500 mg PO TID 10 Days #30 tablet 02/21/20 oxyCODONE [Roxicodone] 5 mg PO Q4HR PRN 6 Days #24 tablet 02/21/20 polyethylene glycoL 3350 [Miralax] 17 gm PO BID packet 02/21/20 - Allergies Allergies/Adverse Reactions: Allergies Allergy/AdvReac Type Severity Reaction Status Date / Time berries Allergy Unknown Uncoded 02/26/22 11:15 - Social History Does the pt smoke?: Yes Smoking Status: Current every day smoker Does the pt drink ETOH?: Yes PD ED PE NORMAL - Vitals Vital signs reviewed: Yes - General General: Alert and oriented X 3, No acute distress, Well developed/nourished - Derm Derm: Normal color, Warm and dry - Extremities Extremities: Other (right hand with swelling and tenderness at index and middle finger MCPs. No noted deformity. Able to flex and extend guardedly. No gross laxity with passive stress testing of MCP ligaments. ) - Neuro Neuro: Alert and oriented X 3, No motor deficit, No sensory deficit, Normal speech Results - Vitals Vitals: Vital Signs - 24 hr 02/26/22 11:13 Temperature 36.5 C Heart Rate 64 Respiratory 16 Rate Blood Pressure 136/67 H O2 Saturation 100 Oxygen O2 Source Room air - Rads (name of study) right hand Radiology: Prelim report reviewed (no fractures), See rad report PD MEDICAL DECISION MAKING - ED course Complexity details: reviewed results (no fractures. Tender at MCPs with guarded ROM. Can give finger splint. ), considered differential, d/w patient Departure - Departure Disposition: 01 Home, Self Care Clinical Impression: Hand contusion Qualifiers: Encounter type: initial encounter Laterality: right Qualified Code(s): S60.221A - Contusion of right hand, initial encounter Finger sprain Qualifiers: Encounter type: initial encounter Finger: index finger Sprain of finger site: metacarpophalangeal joint Laterality: right Qualified Code(s): S63.650A - Sprain of metacarpophalangeal joint of right index finger, initial encounter Condition: Stable Record reviewed to determine appropriate education?: Yes Instructions: ED Sprain Finger Follow-Up: [facility] [Provider Group] Comments: No fracture seen on your x-ray. It does sound like A sprain of the finger joint. Use the finger splint to protect range of motion there. Ice elevate and rest it often. Use some anti-inflammatory such as ibuprofen or naproxen 3 times daily with food for the next 5 to 6 days. Add Tylenol if needed. I would anticipate this improving over the next week or so. However may be even a couple of weeks before feeling all back to normal. Follow-up with orthopedics if not readily improved over the next 7-10 days. Forms: Activity restrictions Discharge Date/Time: 02/26/22 13:20
== END 2022-02-26 13:20 | disposition home or self-care (01) ==
LOC: ED 11:03
DX: S60.221A Contusion of right hand, initial encounter (principal); S63.650A Sprain of metacarpophalangeal joint of right index finger, initial encounter; W20.8XXA Other cause of strike by thrown, projected or falling object, initial encounter; Y93.89 Activity, other specified; Y99.0 Civilian activity done for income or pay; F17.200 Nicotine dependence, unspecified, uncomplicated
CPT/HCPCS: 1040M; 73130; 99282; 99283